=== PATIENT | male | born 1950 | race Caucasian/White ===

== ENCOUNTER 2017-08-08 07:28 | Emergency (ER) | payer OTHER, MEDICARE ==
[2017-08-08 07:34] VITALS: BP 166/79; PULSE 76; RESP 20; TEMP 98.1; O2SAT 93
--- NOTE | 2017-08-08 07:39 | EDPHY ---
HPI/HX/ROS/PE/MDM Narrative: CHIEF COMPLAINT: Priapism HPI: The patient is a 67-year-old male with a history of depression and alcoholism. The patient took trazodone last night was taken before, and awoke at approximately 3:00 a.m. with an erection. This direction lasted basically until the time he arrived emergency department. He was able to urinate without difficulty and did not complain of significant pain or numbness. He has never had this symptom for. He denies any new medications. He has taken his current regimen of medications multiple times in the past without issue. REVIEW OF SYSTEMS: Aside from elements discussed in the HPI, a comprehensive 10-point review of systems was reviewed and is negative. PMH: No history of priapism or urologic disease. SOCIAL HISTORY: Denies drug abuse. PHYSICAL EXAM: General:Patient is alert, in no acute distress. : Normal uncircumcised flaccid penis. Normal skin without evidence of mottling, ischemia or paleness. Testicles normal bilaterally. Neuro: Oriented x3. Normal motor function. Normal sensory function. MDM: This patient presents with priapism that has resolved spontaneously without intervention. Given lack of other specific possible etiologies, I suspect this is likely secondary to his trazodone use last night, although it is unclear why this has started to cause a problem seemingly out of the blue. I encouraged the patient to stop taking trazodone and to follow up with his primary care physician. We discussed strict return precautions. I do not think further labs indicated at this time. General Initial Vital Signs: Initial Vital Signs Temperature (C) 36.7 C 08/08/17 07:31 Heart Rate 76 08/08/17 07:31 Respiratory Rate 20 08/08/17 07:31 Blood Pressure 166/79 H 08/08/17 07:31 O2 Sat (%) 93 08/08/17 07:31 O2 Delivery Mode Room Air Allergies/Adverse Reactions: No Known Allergies Allergy (Verified 08/08/17 07:31) Home Medications: Medication Instructions Recorded Atorvastatin Calcium [Lipitor 40 40 mg PO DAILY #0 tab 08/02/16 mg (*)] Lisinopril [Zestril 20 mg (*)] 40 mg PO DAILY #0 tab 08/02/16 Propranolol HCl [Inderal 10mg (*)] 10 mg PO DAILY #0 tab 08/02/16 Sertraline HCl [Zoloft 100mg (*)] 50 mg PO DAILY #0 tab 08/02/16 traZODone [traZODONE 50MG (*)] 50 mg PO HS PRN #30 tab 08/02/16 Departure - Departure Disposition: Home, Routine, Self-Care Clinical Impression: Priapism, unspecified Condition: Good Instructions: Priapism (ED) Additional Instructions: Follow-up with her primary care physician and urologist within 1 week. Return to the emergency department for recurrent erection, severe pain or other concerns. Referrals: CHARLY RUIZ [Other] - As per Instructions Report Scribed for: Charly Peng Report Scribed by: Nan Millard Date of Report: 08/08/17 Time of Report: 07:38
== END 2017-08-08 08:05 | disposition home or self-care (01) ==
DX: N48.30 Priapism, unspecified (principal)